=== PATIENT | male | born 1990 | race Caucasian/White ===

== ENCOUNTER 2017-08-07 18:45 | Emergency (ER) | payer BC, OTHER ==
[~2017-08-07] VITALS: Ht 193 cm; Wt 111.1 kg
[~2017-08-07 18:45] MED LIST: AUGMENTIN 875875 MG; MEDROLDOSEPACK PO; PRILOSEC20 MG; TESSALON PERLE100 MG; VENTOLIN HFA 1818 GM
[2017-08-07 19:06] VITALS: BP 129/75
[2017-08-07] MEDS ORDERED: PROTONIX40 M1 PO (19:11)
[2017-08-07] MEDS ORDERED: IBUPROFEN 800800 M1 PO (19:33)
== END 2017-08-07 19:57 | disposition home or self-care (01) ==
LOC: ER 18:45
DX: J02.9 Acute pharyngitis, unspecified (principal); F17.210 Nicotine dependence, cigarettes, uncomplicated